=== PATIENT | female | born 1980 | race Caucasian/White ===

== ENCOUNTER → 2018-12-07 | Outpatient (CLI) | payer OTHER ==
[2018-12-07 10:43] VITALS: BP 107/67; PULSE 70; RESP 18; TEMP 98.5; BMI 19.8
--- NOTE | 2018-12-07 10:59 | P.GSHP ---
History of Present Illness H&P Date: 12/07/18 Chief Complaint: nodule right breast The patient is a 38 year old white female with area of nodularity initially felt in her right breast and so bilateral mammograms and a right breast ultrasound were performed. On the bilateral mammograms no discrete abnormality was seen in the right breast but a 1.6 cm lymph node was seen in the left axilla. Secondary to the report of probable change in the right breast the patient underwent a right breast ultrasound which was negative as well. The patient states that since that time the area of nodularity in the right breast has decreased. She has decreased her caffeine intake. Patient does not feel any adenopathy of concern in her left axilla. The patient initially had pain in her right breast she was evaluated and the area of nodularity was identified and this was approximately 2 months ago. Since then the patient used to drink 2 pots of coffee per day has decreased her caffeine intake and noted that there is decreased pain in her breast as well as the nodule being gone. She is not using control pills and has not taken hormones at this time. The patient is now drinking 2 cups per day of coffee. She does not drink pop. She is smoking 1PPD. She does not eat chocolate. No history of breast cancer in the family. Family History: 1. maternal grandmother: pancreatic 2. paternal grandmother: pancreatic 3. father: Non-Hodgkin's lympoma 5. maternal aunt: lung cancer 6. paternal uncle: lung cancer Hormonal History: menarche: 13 : G0 periods: regular, LMP November 26, 2018 BCP: 7 years started at 14 Hormones: none Past Surgical History: 1. tubes in ears, and adenoids removed 2. wisdom teeth Past Medical History: 1. thyroid disease 2. arthritis Social History: smoke: 1 PPD alcohol: 2 glasses QOD drugs: none - Constitutional Constitutional: Reports sweats, Denies chills, Denies fever - EENT Eyes: denies blurred vision, denies pain Ears: bilateral: tinnitus, deny: decreased hearing Ears, nose, mouth and throat: Reports sore throat, Denies headache - Breasts Breasts: bilateral: as per HPI - Cardiovascular Cardiovascular: Denies chest pain, Denies shortness of breath - Respiratory Respiratory: Denies cough, Denies 7 - Gastrointestinal Gastrointestinal: Denies abdominal pain, Denies diarrhea, Denies nausea, Denies vomiting - Genitourinary (Female) Genitourinary: Denies dysuria, Denies hematuria - Menstruation Menstruation: Reports period normal - Musculoskeletal Comment: arthritis - Integumentary Comment: tattoo rash Integumentary: Denies pruritus, Denies rash - Neurological Neurological: Denies numbness, Denies weakness - Psychiatric Psychiatric: Reports anxiety, Reports depression - Endocrine Comment: thyroid disorder - Hematologic/Lymphatic Comment: none - Allergic/Immunologic Allergic/Immunologic: Reports seasonal allergies Past Medical History Past Surgical History: Adenoidectomy Past Psychological History: Anxiety, Depression Smoking Status: Current every day smoker Medications and Allergies Home Medications Medication Instructions Recorded Confirmed Type Levothyroxine Sodium [Synthroid] 50 mcg PO QAM 12/07/18 12/07/18 History hydrOXYzine HCL 10 mg PO Q6HR PRN 12/07/18 12/07/18 History Allergies Allergy/AdvReac Type Severity Reaction Status Date / Time codeine Allergy Vomiting Unverified 12/07/18 10:16 Penicillins Allergy Rash/Hives Unverified 12/07/18 10:16 procaine [From Novocain] Allergy Unknown Unverified 12/07/18 10:16 Childhood sodium lauryl sulfate Allergy Rash/Hives Unverified 12/07/18 10:16 Sulfa (Sulfonamide Allergy Unknown Unverified 12/07/18 10:16 Antibiotics) Childhood Surgical - Exam BMI 19.8 - General well developed, well nourished, no distress - Eyes normal ocular movement - ENT normal pinna, no hearing loss - Neck no masses, trachea midline - Respiratory normal expansion, normal respiratory effort, clear to auscultation - Cardiovascular Rhythm: regular Heart Sounds: normal: S1, S2 - Abdomen Abdomen: soft, non tender, no guarding, no rigid, no rebound - Integumentary tattoos - Neurologic no disoriented, no combative - Musculoskeletal normal gait, normal posture - Psychiatric oriented to time, oriented to person, oriented to place, speech is normal, memory intact breast exam: right breast: Multi-positional exam fibrocystic changes, no discrete dominant masses or nodules of concern Right axilla: No adenopathy of concern Left breast: Multi-positional exam no discrete dominant mass or nodule is of concern Left axilla: No discrete adenopathy of concern Results Patient's mammogram and ultrasound reviewed done on 09/26/2018 Computed tomography scan of soft tissue [facility] reviewed no discrete abnormality identified CT of the brain done on 3519 no acute intracranial process Assessment and Plan Assessment: Impression: 1. complaint of right breast pain, improved 2. left axillary adenopathy 3. arthritis 4. depression/anxiety 5. no masses of concer 6. family history of cancer Plan: 1. ultrasound of left axilla 2. counselled on stopping smoking and caffiene intake 3. follow up after ultrasound of the axilla CC: Dr. Julieta Kirkpatrick
== END | disposition home or self-care (01) ==
LOC: WWCWWP 09:33
PROVIDERS: ATTEND Surgery
DX: Z53.9 Procedure and treatment not carried out, unspecified reason (principal)

== ENCOUNTER → 2018-12-26 | Outpatient (CLI) | payer OTHER ==
--- NOTE | 2018-12-26 10:44 | USB ---
Reason for exam: clinical finding. Physical Findings: Nurse did not find any significant physical abnormalities on exam. US Breast LT Left complete breast ultrasound includes all four quadrants, the retroareolar region and axilla. Finding demonstrates no cystic or solid lesion seen. These results were verbally communicated with the patient and result sheet given to the patient on 12/26/18. ASSESSMENT: Benign, BI-RAD 2 RECOMMENDATION: Clinical management of the left breast. Manage patient on a clinical basis.
== END | disposition home or self-care (01) ==
LOC: RADUSWWP 09:48
PROVIDERS: ATTEND Surgery
DX: R92.8 Other abnormal and inconclusive findings on diagnostic imaging of breast (principal)